=== PATIENT | female | born 1965 | race Two or more races ===

== ENCOUNTER 2019-01-08 08:06 | Emergency (ER) | payer OTHER ==
[~2019-01-08] VITALS: Ht 165.1 cm; Wt 88.5 kg
[2019-01-08] MEDS ORDERED: valium PO (09:18)
== END 2019-01-08 09:32 | disposition home or self-care (01) ==
LOC: ER 08:06
DX: M54.5 Low back pain (principal)

== ENCOUNTER 2022-10-19 13:31 | Emergency (ER) | payer OTHER ==
[~2022-10-19] VITALS: Ht 167.6 cm; Wt 88.5 kg
[~2022-10-19 13:31] MED LIST: valium PO
[2022-10-19] MEDS ORDERED: ZESTRIL10 M1 PO (13:58)
== END 2022-10-19 18:37 | disposition home or self-care (01) ==
LOC: ER 13:31
DX: M50.322 Other cervical disc degeneration at C5-C6 level (principal); M54.9 Dorsalgia, unspecified; I10 Essential (primary) hypertension